=== PATIENT | male | born 1970 | race Caucasian/White ===

== ENCOUNTER 2019-07-20 09:33 | Day surgery (SDC) | payer OTHER, SELFPAY ==
--- NOTE | 2019-07-20 | PATH_ITS ---
[facility] Accession Number: [id number] . 01 Material submitted: . PART A: ileo-cecal valve - ILEOCECAL VALVE POLYP BIOPSY PART B: hepatic flexure - HEPATIC FLEXURE POLYP BIOPSY . 02 Diagnosis: A. Ileocecal Valve Polyp, Biopsy: Ileocolonic mucosa with prominent benign lymphoid aggregate. Negative for serrated lesion, dysplasia or malignancy. . B. Hepatic Flexure Polyp, Biopsy: Tubulovillous adenoma, fragmented. Negative for high-grade dysplasia or malignancy. [facility] 07/21/2019 0952 Local . 02 Electronically signed: . Ed Hoang MD, PhD, Pathologist NPI- [id number] . 01 Gross description: . Part A: ILEOCECAL VALVE POLYP BIOPSY: Received in formalin are 2 fragment(s) of gutierrez, soft tissue measuring 0.1 x 0.1 x 0.1 cm to 0.2 x 0.2 x 0.2 cm submitted entirely in 1 cassette(s) Part B: HEPATIC FLEXURE POLYP BIOPSY: Received in formalin are multiple fragment(s) of gutierrez, soft tissue measuring 0.1 x 0.1 x 0.1 cm to 0.5 x 0.5 x 0.4 cm submitted entirely in 1 cassette(s) /[facility] 07/20/2019 2224 Local . 02 Pathologist provided ICD-10: D12.3, K63.5 . 02 CPT . 229097, 584508 Performed at: 01 [facility] [address] [id number] MD Fritz Pink MD Phone: [phone] Performed at: 02 [facility] [address] [place], [place] [id number] MD Pinky Mcmahan MD Phone: [phone]
[2019-07-20 09:58] VITALS: BP 132/89; PULSE 89; RESP 20; TEMP 36.4; O2SAT 95
[2019-07-20 10:05] VITALS: BMI 31.8
--- NOTE | 2019-07-20 10:48 | P.HP_ITS ---
History of Present Illness History of Present Illness Date Patient Seen: 07/20/19 Time Patient Seen: 10:49 Chief complaint: [id number] Narrative: The patient is a gentleman here for screening colonoscopy. He turned 49. He has no symptoms. He has no family history colon cancer. Patient History Family & Social History Social History: household members spouse Meds Home Medications and Allergies Home Medications Medication Instructions Recorded Confirmed Type trazodone 50 - 100 mg PO HS PRN PRN #45 tab 01/10/17 Rx hydrocodone-acetaminophen 1 tab PO Q4H PRN 07/20/19 07/20/19 History losartan 50 mg PO QDAY 07/20/19 History metformin 1,000 mg PO BID 07/20/19 07/20/19 History simvastatin [Zocor] 40 mg PO HS 07/20/19 History Allergies Allergy/AdvReac Type Severity Reaction Status Date / Time aspirin Allergy Severe SEVERE Verified 07/20/19 09:43 BRONCHOSPASM ibuprofen Allergy Severe NASAL Verified 07/20/19 09:43 SWELLING NSAIDS (Non-Steroidal Allergy Severe SEVERE Verified 07/20/19 09:43 Anti-Inflamma BRONCHOSPASM Review of Systems Review of Systems ROS Unobtainable: All systems reviewed & are unremarkable except as noted in HPI and below Exam Vital Signs (past 8 hours): - 07/20/19 09:58 Temperature 97.5 F L Pulse Rate 89 Respiratory Rate 20 Blood Pressure 132/89 Pulse Oximetry 95 Oxygen Delivery Method Room Air Narrative Exam Narrative: Pleasant cooperative patient no apparent distress. Lungs are clear to auscultation. No rales or rhonchi. Heart regular rate and rhythm no murmur gallop. Abdomen is soft nontender without mass. No obvious hernias. Patient is alert and oriented x3. Assessment & Plan Assessment & Plan narrative: The patient for a screening colonoscopy. I have discussed the procedure with them. Risks of bleeding, perforation which would necessitate major operation, failure to find remove all lesions, the potential t attoo were all discussed. All questions were answered. They wished to proceed.
--- NOTE | 2019-07-20 10:50 | PM.PREOP ---
Pre-operative Note Interval Note History & Physical reviewed/Exam performed by Physician: Yes Changes to H&P: No ASA Class (for procedural sedation): I
[2019-07-20] MEDS: MIDAZOLAM 5 MG/5 ML VIAL IV (11:01)
[2019-07-20] MEDS: fentaNYL 250 MCG/5 ML INJ IV (11:02)
--- NOTE | 2019-07-20 11:34 | PM.OP.ENDO ---
Operative Date/Time/Diagnoses Date of procedure: 07/20/19 Time of procedure: 11:34 Pre-op diagnosis: Screening examination Post-op diagnosis: same (Polyp at at hepatic flexure. Irregularity of the ileocecal valve that could be an adenomatous change. Biopsy taken.) Procedure & Clinicians Study performed: Colonoscopy with cold biopsy and hot snare polypectomy Same procedure as scheduled: Yes Indications: Screening due to age of 49. This is his 1st colonoscopy. Surgeon: Indra Heredia Procedure Notes SCOAP/Timeout: Performed Procedure in detail: The patient was placed in the left lateral decubitus position and underwent IV sedation directed by the surgeon consisting of fentanyl and Versed. Digital exam was unremarkable. Prostate is smooth. May be slightly enlarged. No masses felt.. The scope was inserted and advanced through the rectum into the sigmoid, descending, transverse, and ascending colon. Sigmoid diverticulosis was noted. At the hepatic flexure there was a polyp noted which I decided to remove on the way out.. The cecum was reached identified by the ileocecal valve and the appendiceal opening. The ileocecal valve looked slightly unusual on about a 5th of its surface. I took some biopsies just to make sure this was not an adenoma. The abnormal looking area was not completely removed. If the biopsy is positive he will require repeat colonoscopy and treatment of this lesion. However I suspected it was just a normal variant which is why I did not pursue it further.. The scope was gradually brought out. The Polyp at the hepatic flexure found an using a hot snare was completely removed.. The scope ultimately was retroflexed in the rectum. The appearance was normal. The scope was removed and the patient tolerated the procedure well. The prep was good. Scope withdrawal time: 8 minutes(13 total) Sedation minutes: 31 Findings: diverticulosis and polyp Specimen(s): other (Polyp and biopsy of ileocecal valve) Complications: none Post-procedure Recommendations: Colonscopy in 5 years Follow up: as needed Disposition: PACU
[2019-07-20 11:40] VITALS: BP 128/79; PULSE 87; RESP 12; TEMP 36.4; O2SAT 93
[2019-07-20 11:45] VITALS: BP 119/82; PULSE 82; RESP 10; O2SAT 94
[2019-07-20 11:50] VITALS: BP 117/73; PULSE 85; RESP 12; TEMP 36.4; O2SAT 94
[2019-07-20 12:15] VITALS: BP 104/78; PULSE 75; RESP 15; TEMP 36; O2SAT 95
== END 2019-07-20 12:20 | disposition home or self-care (01) ==
PROVIDERS: PCP Physician Assistant; Visit Provider Specialist
PROC: 0DJD8ZZ Inspection of Lower Intestinal Tract, Via Natural or Artificial Opening Endoscopic (ICD-10-PCS; CPT 45378; principal; 2019-07-20 10:45)
DX: Z12.11 Encounter for screening for malignant neoplasm of colon (principal); K57.30 Diverticulosis of large intestine without perforation or abscess without bleeding; D12.3 Benign neoplasm of transverse colon; K63.5 Polyp of colon
CPT/HCPCS: 45385; 45380; 99152; 99153; J2250; J3010

== ENCOUNTER → 2021-08-16 13:39 | Outpatient (CLI) | payer OTHER, SELFPAY ==
[2021-08-16 14:36] LABS: Add Manual Diff / Slide Review NO; Basophils Absolute Auto 100 /uL (0-100); Basophils Percent Auto 0.7 % (0-2); Eosinophils Absolute Auto 400 /uL (0-450); Eosinophils Percent Auto 5.1 % (2-4); Hematocrit 45.4 % (41-53); Hemoglobin 15.7 g/dL (13.5-17.5); Lymphocytes Absolute Auto 1700 /uL (1100-4500); Lymphocytes Percent Auto 21.3 % (25-40); Mean Corpuscular HGB Conc 34.7 % (30-36); Mean Corpuscular Hemoglobin 32.3 PG (26-34); Mean Corpuscular Volume 93.1 fL (80-100); Monocytes Absolute Auto 800 /uL (0-900); Neutrophils Absolute Auto 5100 /uL (1500-7000); Neutrophils Percent Auto 62.9 % (50-75); Platelet Count 284 X10^3/uL (150-400); Red Blood Cell Count 4.87 X10^6/uL (4.5-5.9); Red Cell Distribution Width 13.3 % (11.6-14.8); White Blood Cell Count 8.1 X10^3/uL (4.5-11.0)
[2021-08-16 14:47] LABS: Hemoglobin A1C% w Est Avg Glu 6.6 % (4.0-6.0)
[2021-08-16 15:15] LABS: Alanine Aminotransferase 65 IU/L (<50); Albumin 4.6 g/dL (3.5-5.0); Albumin Globulin Ratio 1.9 (1.0-2.8); Alkaline Phosphatase 76 U/L (38-126); Aspartate Aminotransferase 42 IU/L (17-59); BUN Creatinine Ratio 17.9 (6-22); Blood Urea Nitrogen 15 mg/dL (9-20); Calcium 9.7 mg/dL (8.4-10.2); Carbon Dioxide 27 mmol/L (22-32); Chloride 104 mmol/L (98-107); Cholesterol 142 mg/dL (140-199); Estimated Glomerular Filt Rate > 60.0 mL/min (>60); Globulin 2.4 g/dL (1.7-4.1); Glucose 151 mg/dL (70-100); HDL Cholesterol 54 mg/dL (40-60); HEMOLYSIS < 15 (0-50); LDL Cholesterol Calculated 58 mg/dL (<100); Potassium 4.3 mmol/L (3.4-5.1); Sodium 140 mmol/L (137-145); Triglycerides 148 mg/dL (35-150)
[2021-08-16 15:44] LABS: Prostate Specific Antigen Scrn 0.781 ng/mL (0.1-4.0)
== END ==
PROVIDERS: PCP Family Medicine; Referring Provider Family Medicine; Visit Provider Family Medicine
DX: E78.2 Mixed hyperlipidemia (principal); E11.9 Type 2 diabetes mellitus without complications; Z12.5 Encounter for screening for malignant neoplasm of prostate
CPT/HCPCS: 36415; 80053; 80061; 83036; 85025; G0103

== ENCOUNTER → 2022-09-17 10:14 | Outpatient (CLI) | payer OTHER, SELFPAY ==
[2022-09-17 10:34] LABS: Add Manual Diff / Slide Review NO; Basophils Absolute Auto 100 /uL (0-100); Basophils Percent Auto 0.8 % (0-2); Eosinophils Absolute Auto 300 /uL (0-450); Eosinophils Percent Auto 4.4 % (2-4); Hematocrit 46.1 % (41-53); Hemoglobin 15.8 g/dL (13.5-17.5); Lymphocytes Absolute Auto 1800 /uL (1100-4500); Lymphocytes Percent Auto 24.3 % (25-40); Mean Corpuscular HGB Conc 34.2 % (30-36); Mean Corpuscular Hemoglobin 32.7 PG (26-34); Mean Corpuscular Volume 95.6 fL (80-100); Monocytes Absolute Auto 700 /uL (0-900); Monocytes Percent Auto 9.6 % (3-14); Neutrophils Absolute Auto 4400 /uL (1500-7000); Neutrophils Percent Auto 60.9 % (50-75); Platelet Count 322 X10^3/uL (150-400); Red Blood Cell Count 4.82 X10^6/uL (4.5-5.9); Red Cell Distribution Width 13.3 % (11.6-14.8); White Blood Cell Count 7.3 X10^3/uL (4.5-11.0)
[2022-09-17 10:53] LABS: Hemoglobin A1C% w Est Avg Glu 7.1 % (4.0-6.0)
[2022-09-17 11:09] LABS: Alanine Aminotransferase 37 IU/L (<50); Alkaline Phosphatase 73 U/L (38-126); Aspartate Aminotransferase 30 IU/L (17-59); BUN Creatinine Ratio 19.1 (6-22); Bilirubin Total 1.1 mg/dL (0.2-1.3); Blood Urea Nitrogen 13 mg/dL (9-20); Carbon Dioxide 25 mmol/L (22-32); Chloride 101 mmol/L (98-107); Cholesterol 237 mg/dL (140-199); Estimated Glomerular Filt Rate > 60 mL/min (>60); Glucose 134 mg/dL (70-100); HDL Cholesterol 56 mg/dL (40-60); HEMOLYSIS < 15 (0-50); LDL Cholesterol Calculated 133 mg/dL (<100); Potassium 4.3 mmol/L (3.4-5.1); Sodium 138 mmol/L (137-145); Total Protein 6.9 g/dL (6.3-8.2); Triglycerides 241 mg/dL (35-150)
[2022-09-17 11:25] LABS: Vitamin D 25 Hydroxy (D3) 18.4 ng/mL (30.0-100.0)
[2022-09-17 11:39] LABS: TSH w/ Reflex to FT4 1.71 uIU/mL (0.47-4.68)
[2022-09-17 11:57] LABS: Vitamin B12 331 pg/mL (239-931)
[2022-09-20 16:21] LABS: Albumin 4.4 g/dL (3.5-5.0); Albumin Globulin Ratio 1.8 (1.0-2.8); Globulin 2.5 g/dL (1.7-4.1)
[2022-09-23 12:36] LABS: Percent Free Testosterone 1.41 % (1.50-4.20); Testosterone Free 6.07 ng/dL (5.00-21.00); Testosterone Total 430.8 ng/dL (264.0-916.0)
== END ==
PROVIDERS: PCP Family Medicine; Referring Provider Family Medicine; Visit Provider Family Medicine
DX: E78.2 Mixed hyperlipidemia (principal); F32.A Depression, unspecified; I10 Essential (primary) hypertension; R53.83 Other fatigue; R73.03 Prediabetes
CPT/HCPCS: 36415; 80053; 80061; 82306; 82607; 83036; 84402; 84403; 84443; 85025

== ENCOUNTER → 2023-01-08 13:55 | Outpatient (CLI) | payer OTHER, SELFPAY ==
[2023-01-08 15:24] LABS: Cholesterol 152 mg/dL (140-199); HDL Cholesterol 52 mg/dL (40-60); LDL Cholesterol Calculated 49 mg/dL (<100); Triglycerides 255 mg/dL (35-150)
[2023-01-09 05:32] LABS: x Labcorp Estim. Avg Glu (eAG) 157 mg/dL (.); x Labcorp Hemoglobin A1c 7.1 % (4.8-5.6)
== END ==
PROVIDERS: PCP Family Medicine; Referring Provider Family Medicine; Visit Provider Family Medicine
DX: E11.9 Type 2 diabetes mellitus without complications (principal); E78.2 Mixed hyperlipidemia; I10 Essential (primary) hypertension
CPT/HCPCS: 36415; 80061; 83036

== ENCOUNTER → 2023-01-22 08:46 | Outpatient (CLI) | payer OTHER, SELFPAY ==
[2023-01-22 10:29] LABS: Ferritin 113 ng/mL (18-464)
== END ==
PROVIDERS: PCP Family Medicine; Referring Provider Family Medicine; Visit Provider Family Medicine
DX: G25.81 Restless legs syndrome (principal); M25.561 Pain in right knee
CPT/HCPCS: 36415; 82728

== ENCOUNTER → 2023-09-12 08:23 | Outpatient (CLI) | payer OTHER, SELFPAY ==
[2023-09-12 08:57] LABS: Hemoglobin A1C% w Est Avg Glu 7.4 % (4.0-6.0)
[2023-09-12 10:34] LABS: Creatinine Urine Random 214.5 mg/dL
[2023-09-12 10:39] LABS: Microalbumi Creatinin Ratio Ur 43.3 ug/mg CR (<30); Microalbumin Urine Random 9.3 mg/dL (0-1.6)
== END ==
LOC: LAB 08:24
PROVIDERS: PCP Family Medicine; Referring Provider Family Medicine; Visit Provider Family Medicine
DX: E11.9 Type 2 diabetes mellitus without complications (principal); I10 Essential (primary) hypertension
CPT/HCPCS: 36415; 82043; 82570; 83036

== ENCOUNTER → 2023-09-17 09:38 | Outpatient (CLI) | payer OTHER, SELFPAY ==
[2023-09-17 10:39] LABS: Alanine Aminotransferase 54 IU/L (<50); Albumin 4.7 g/dL (3.5-5.0); Albumin Globulin Ratio 1.6 (1.0-2.8); Alkaline Phosphatase 84 U/L (38-126); Aspartate Aminotransferase 52 IU/L (17-59); BUN Creatinine Ratio 15.9 (6-22); Bilirubin Total 1.4 mg/dL (0.2-1.3); Blood Urea Nitrogen 13 mg/dL (9-20); Calcium 9.8 mg/dL (8.4-10.2); Carbon Dioxide 22 mmol/L (22-32); Chloride 101 mmol/L (98-107); Cholesterol 186 mg/dL (140-199); Estimated Glomerular Filt Rate > 60 mL/min (>60); Glucose 146 mg/dL (70-100); HDL Cholesterol 51 mg/dL (40-60); LDL Cholesterol Calculated 64 mg/dL (<100); Potassium 4.4 mmol/L (3.4-5.1); Sodium 138 mmol/L (137-145); Total Protein 7.7 g/dL (6.3-8.2); Triglycerides 353 mg/dL (35-150)
[2023-09-17 13:49] LABS: HEMOLYSIS < 15 (0-50)
== END ==
PROVIDERS: PCP Family Medicine; Referring Provider Family Medicine; Visit Provider Family Medicine
DX: E11.9 Type 2 diabetes mellitus without complications (principal); E78.2 Mixed hyperlipidemia; R80.9 Proteinuria, unspecified
CPT/HCPCS: 36415; 80053; 80061

== ENCOUNTER → 2024-04-19 14:42 | Outpatient (CLI) | payer OTHER, SELFPAY ==
[2024-04-19 15:49] LABS: Hemoglobin A1C% w Est Avg Glu 6.4 % (4.0-6.0)
[2024-04-19 16:04] LABS: Alanine Aminotransferase 34 IU/L (<50); Albumin 4.5 g/dL (3.5-5.0); Alkaline Phosphatase 67 U/L (38-126); Aspartate Aminotransferase 24 IU/L (17-59); BUN Creatinine Ratio 17.9 (6-22); Blood Urea Nitrogen 15 mg/dL (9-20); Calcium 9.6 mg/dL (8.4-10.2); Carbon Dioxide 24 mmol/L (22-32); Chloride 105 mmol/L (98-107); Cholesterol 154 mg/dL (140-199); Estimated Glomerular Filt Rate > 60 mL/min (>60); Globulin 2.3 g/dL (1.7-4.1); Glucose 83 mg/dL (70-100); HDL Cholesterol 30 mg/dL (40-60); HEMOLYSIS < 15 (0-50); LDL Cholesterol Calculated 92 mg/dL (<100); Potassium 4.4 mmol/L (3.4-5.1); Sodium 140 mmol/L (137-145); Total Protein 6.8 g/dL (6.3-8.2); Triglycerides 162 mg/dL (35-150)
== END ==
LOC: LAB 14:43
PROVIDERS: PCP Family Medicine; Referring Provider Family Medicine; Visit Provider Family Medicine
DX: E11.9 Type 2 diabetes mellitus without complications (principal); R80.9 Proteinuria, unspecified; I10 Essential (primary) hypertension; E78.2 Mixed hyperlipidemia
CPT/HCPCS: 36415; 80053; 80061; 83036

== ENCOUNTER → 2024-04-20 08:27 | Outpatient (CLI) | payer OTHER, SELFPAY ==
[2024-04-20 09:16] LABS: Microalbumin Urine Random < 0.6 mg/dL (0-1.6)
[2024-04-20 09:23] LABS: Creatinine Urine Random 17.52 mg/dL
== END ==
LOC: LAB 08:28
PROVIDERS: PCP Family Medicine; Referring Provider Family Medicine; Visit Provider Family Medicine
DX: E11.9 Type 2 diabetes mellitus without complications (principal); R80.9 Proteinuria, unspecified; I10 Essential (primary) hypertension; E78.2 Mixed hyperlipidemia
CPT/HCPCS: 82043; 82570

== ENCOUNTER 2024-08-03 13:41 | Emergency (ER) | payer OTHER, SELFPAY ==
[2024-08-03] VITALS (11 sets, daily range): BP systolic 129–186; BP diastolic 86–103; PULSE 78–102; RESP 12–25; TEMP 36.7; O2SAT 94–99; BMI 32.1
--- NOTE | 2024-08-03 14:28 | ED.DIZZY ---
HPI - Dizziness General Chief Complaint: Dizziness Stated Complaint: Right ear pain, Vertigo Time Seen by Provider: 08/03/24 14:28 Source: patient, RN notes reviewed and old records reviewed Mode of arrival: Ambulatory Limitations: no limitations History of Present Illness HPI Narrative: 54-year-old male history of chronic arthritis, hypertension, dyslipidemia who presents with complaint of vertigo like symptoms that started about a week ago. Patient states it started about a week ago he rolled over in bed in the morning got up and felt like the room is spinning. He states it has been persistent although less intense as the week has gone by. He states movements particularly looking over his shoulder worse in his symptoms. States no fevers or chills, denies any vision changes. He has had no ear pain but a little bit of like a whooshing sound at nighttime while he was sleeping. He denies any numbness tingling or weakness of his extremities no difficulty with movement, no facial droop or speech changes. Denies any chest pain or shortness of breath. Had some mild nausea when it was quite intense but that is resolved. No GI or urinary symptoms. Patient states he called his physician today because his blood pressure was 180 systolic they told to come be evaluated. Patient has not had similar symptoms he states he is on medication for hypertension dyslipidemia and takes [place] daily for joint pain. History of appendectomy. Has sounds like anaphylactic reactions to aspirin and NSAIDs. Chews tobacco, quit alcohol 7 months ago. No recreational drugs or marijuana. Dr. Boyle is his primary care physician Related Data Previous Rx's Medication Instructions Recorded cholecalciferol (vitamin D3) 1,250 1,250 mcg PO QWEEK #8 caps 10/10/22 mcg (50,000 unit) capsule glimepiride 2 mg tablet 2 mg PO DAILY #90 tabs 10/10/23 naloxone 4 mg/actuation nasal 4 mg intranasal Q2M PRN opioid 10/10/23 spray (Narcan) overdose #2 ea paroxetine HCl 20 mg tablet 20 mg PO DAILY #90 tabs 11/04/23 paroxetine HCl 40 mg tablet 40 mg PO DAILY #90 tabs 11/04/23 metformin 1,000 mg tablet 1,000 mg PO BID #180 tabs 03/24/24 atorvastatin 20 mg tablet 20 mg PO BEDTIME #90 tabs 03/30/24 losartan 50 mg tablet 50 mg PO BID HYPERTENSION #180 tabs 03/30/24 hydrocodone 7.5 mg-acetaminophen See Rx Instructions .Route 07/15/24 325 mg tablet .COMPLEX #120 tabs clonazepam 0.5 mg tablet 0.5 mg PO BID PRN anxiety #30 tabs 07/20/24 meclizine 25 mg chewable tablet 25 mg PO QID PRN vertigo #14 tabs 08/03/24 (Motion Sickness Relief (meclizine)) Allergies Allergy/AdvReac Type Severity Reaction Status Date / Time aspirin Allergy Severe SEVERE Verified 04/21/24 12:03 BRONCHOSPASM ibuprofen Allergy Severe NASAL Verified 04/21/24 12:03 SWELLING NSAIDS (Non-Steroidal Allergy Severe SEVERE Verified 04/21/24 12:03 Anti-Inflamma BRONCHOSPASM Review of Systems Review of Systems ROS Unobtainable: All systems reviewed & are unremarkable except as noted in HPI and below Patient History Medical History Right wrist pain Anxiety Microalbuminuria Pain of right great toe Restless leg Diabetes Alcohol abuse Depression Fatigue Suspicious nevus HTN (hypertension) Screening for prostate cancer Left knee pain (04/29/13) Right knee pain (04/29/13) Mixed hyperlipidemia (01/16/11) Obstructive sleep apnea syndrome (01/16/11) Social History household members: spouse Smoking Status: Former smoker Smokeless tobacco user: chewing tobacco alcohol intake: current substance use type: does not use Smoking Status: Former smoker tobacco type: smokeless tobacco Substance Use Type: does not use Exam Narrative Exam Narrative: GEN: well nourished, well appearing male, alert and oriented x 3, patient appears to be in mild distress. HEENT: Atraumatic, pupils are equal round reactive to light, extraocular movements are intact, no nystagmus, negative [place]. Nares are clear, TMs are retracted bilaterally, scant amount of fluid, no erythema, there is no conjunctival pallor. Throat is clear without any exudates, erythema, tonsillar enlargement or uvular deviation, no facial droop HEART: Regular rate and rhythm without murmur, clicks, rubs. No edema bilateral lower extremities LUNGS:Lungs clear to auscultation, no wheezes, rales, crackles, chest moves symmetrically ABD:bowel sounds normal, soft, non-tender, no guarding, rebound, rigidity, no masses noted, no hepatosplenomegaly :No CVA tenderness MSCL: Non-tender, no muscle atrophy, muscles strength 5/5 upper and lower extremities, full range of motion, normal gait NEURO:CN 2-12 intact, sensation normal, finger nose finger test normal, heel portillo test normal. Initial Vital Signs Initial Vital Signs: Vital Signs Temperature 98.0 F 08/03/24 14:00 Pulse Rate 102 H 08/03/24 14:00 Respiratory Rate 16 08/03/24 14:00 Blood Pressure 186/103 H 08/03/24 14:00 Pulse Oximetry 97 08/03/24 14:00 Oxygen Delivery Method Room Air 08/03/24 14:00 Course Orders Ordered: ED Orders 08/03/24 14:27 CBC Auto Diff [Complete Blood Count AUTO DIFF] Stat CMP [Comprehensive Metabolic Panel] Stat 08/03/24 15:04 CT angio head and neck Stat CT head/brain wo con Stat 08/03/24 15:10 EKG-12 Lead Stat Discontinued Medications Meclizine HCl (Meclizine Hcl 12.5 Mg Tablet) 25 mg PO NOW ONE Stop: 08/03/24 15:05 Last Admin: 08/03/24 15:43 Dose: 25 mg Documented By: CHEYANNE Vital Signs Vital signs: Vital Signs - 8 hr 08/03/24 14:00 08/03/24 14:25 08/03/24 14:26 Temperature 98.0 F Pulse Rate 102 H 90 88 Respiratory Rate 16 25 H 12 Blood Pressure 186/103 H Pulse Oximetry 97 96 96 Oxygen Delivery Method Room Air 08/03/24 14:26 08/03/24 14:30 08/03/24 14:30 Temperature Pulse Rate 90 Respiratory Rate 18 Blood Pressure 141/90 H 143/90 H Pulse Oximetry 94 Oxygen Delivery Method 08/03/24 15:00 08/03/24 15:00 08/03/24 15:22 Temperature Pulse Rate 81 88 Respiratory Rate 19 Blood Pressure 139/92 H Pulse Oximetry 95 99 Oxygen Delivery Method 08/03/24 15:22 08/03/24 15:30 08/03/24 15:31 Temperature Pulse Rate 83 82 Respiratory Rate 12 Blood Pressure 172/100 H Pulse Oximetry 95 95 Oxygen Delivery Method 08/03/24 15:31 08/03/24 16:00 08/03/24 16:00 Temperature Pulse Rate 84 Respiratory Rate 19 Blood Pressure 154/88 H 134/86 Pulse Oximetry 95 Oxygen Delivery Method 08/03/24 16:30 08/03/24 16:30 08/03/24 17:00 Temperature Pulse Rate 78 Respiratory Rate 16 Blood Pressure 129/88 137/89 Pulse Oximetry 97 Oxygen Delivery Method 08/03/24 17:00 Temperature Pulse Rate 85 Respiratory Rate 16 Blood Pressure Pulse Oximetry 95 Oxygen Delivery Method MDM - Dizziness Lab Data 08/03/24 14:27 08/03/24 14:27 Labs: Lab Results 08/03/24 Range/Units 14:27 WBC 7.6 (4.5-11.0) X10^3/uL RBC 5.39 (4.5-5.9) X10^6/uL Hgb 16.2 (13.5-17.5) g/dL Hct 48.3 (41-53) % MCV 89.6 (80-100) fL MCH 30.1 (26-34) PG MCHC 33.6 (30-36) % RDW 14.7 (11.6-14.8) % Plt Count 260 (150-400) X10^3/uL Neut % (Auto) 59.6 (50-75) % Lymph % (Auto) 25.9 (25-40) % [place] % (Auto) 9.7 (3-14) % Eos % (Auto) 4.2 H (2-4) % Baso % (Auto) 0.6 (0-2) % Neut # (Auto) 4500 (1724-6530) /uL Lymph # (Auto) 2000 (7382-0795) /uL [place] # (Auto) 700 (0-900) /uL Eos # (Auto) 300 (0-450) /uL Baso # (Auto) 0 (0-100) /uL Sodium 138 (137-145) mmol/L Potassium 4.1 (3.4-5.1) mmol/L Chloride 103 (98-107) mmol/L Carbon Dioxide 26 (22-32) mmol/L BUN 19 (9-20) mg/dL Creatinine 0.93 (0.66-1.25) mg/dL Estimated GFR > 60 (>60) mL/min BUN/Creatinine Ratio 20.4 (6-22) Glucose 130 H (70-100) mg/dL Calcium 9.6 (8.4-10.2) mg/dL Total Bilirubin 1.1 (0.2-1.3) mg/dL AST 39 (17-59) IU/L ALT 40 (<50) IU/L Alkaline Phosphatase 59 (38-126) U/L Total Protein 7.0 (6.3-8.2) g/dL Albumin 4.5 (3.5-5.0) g/dL Globulin 2.5 (1.7-4.1) g/dL Albumin/Globulin Ratio 1.8 (1.0-2.8) ECG Data Attestation: I personally reviewed and interpreted this ECG as follows: Interpretation: Sinus rhythm rate 84 CT 182 QRS of 98 QTC of 437, no acute ST elevation depression noted. MDM Narrative Medical decision making narrative: 54-year-old male with a week of vertigo like symptoms, patient's exam does not show any other acute neurologic changes no nystagmus on exam negative [place]. Patient was hypertensive although on recheck is 136 systolic while I am in the room. Patient has had some improvement in the intensity but not resolution. Head CT no acute intracranial pathology mild chronic microvascular ischemic changes. CTA head and neck no significant acute intracranial or changes to the arteries of the neck. Labs normal CBC, normal electrolytes, BUN creatinine 0.93 glucose of 130 LFTs are negative. EKG shows normal sinus rhythm. Patient was given a dose of oral meclizine. On recheck patient is feeling much improved. Pressures improved as well. Discussed return precautions all questions answered. Discussed follow up with ENT persistent symptoms. My suspicion for stroke significant lower no other acute neurologic changes had a week of symptoms without any changes consistent with stroke on CT, CT angio is negative. Discussed with patient he feels comfortable this plan. Discharge Plan Departure Patient Disposition: Home Clinical Impression: Vertigo Instructions: DI for Vertigo Activity Restrictions/Additional Instructions: Please follow up for recheck, your blood pressure was initially elevated but has improved during your stay. If you are continuing to have symptoms I would recommend follow up with ENT for further evaluation of your vertigo. Contacts included below. Please call to set up appointment. You can take meclizine 1-2 tablets every 6 hours as needed for symptoms. Prescription sent to [facility] in [place]. This medication is also available [id number]-cei-xddhddm. Please return for fevers, new numbness, tingling or weakness, facial droop difficulty with speech, rapidly worsening symptoms, inability to walk or ambulate safely or other new or concerning changes. Prescriptions: New meclizine [Motion Sickness Relief(mecliz)] 25 mg tablet,chewable 25 mg PO QID PRN (Reason: vertigo ) Qty: 14 0RF No Action paroxetine HCl 20 mg tablet 20 mg PO DAILY Qty: 90 1RF Rx Instructions: TAKE WITH 1 TAB OF 40MG PAROXETINE TAB FOR TOTAL DAILY DOSE 60MG paroxetine HCl 40 mg tablet 40 mg PO DAILY Qty: 90 1RF Rx Instructions: TAKE WITH 1 TAB 20MG PAROXETINE FOR TOTAL 60MG DAILY DOSE metformin 1,000 mg tablet 1,000 mg PO BID Qty: 180 1RF atorvastatin 20 mg tablet 20 mg PO BEDTIME Qty: 90 3RF losartan 50 mg tablet 50 mg PO BID Qty: 180 1RF hydrocodone-acetaminophen 7.5-325 mg tablet See Rx Instructions .ROUTE .COMPLEX Qty: 120 0RF Rx Instructions: Take 1 tablet by mouth every 4 hours as needed for pain EXEMPT clonazepam 0.5 mg tablet 0.5 mg PO BID PRN (Reason: anxiety) Qty: 30 5RF cholecalciferol (vitamin D3) 1,250 mcg (50,000 unit) capsule 1,250 mcg PO QWEEK Qty: 8 0RF Narcan 4 mg/actuation spray,non-aerosol 4 mg intranasal Q2M PRN (Reason: opioid overdose) Qty: 2 3RF Rx Instructions: spray 1 dose into ONE nostril; alternate nostrils w each dose until help arrives glimepiride 2 mg tablet 2 mg PO DAILY Qty: 90 5RF Referrals: Chang Pearce MD [Physician] - Juni Boyle DO [Primary Care Provider] - Stand Alone Forms: Patient Portal/API/Survey, Work Release Note
--- NOTE | 2024-08-03 15:04 | DI.CT.S_ITS ---
PROCEDURE: CT HEAD/BRAIN WO CON INDICATIONS: vertigo x 1 week, no improving TECHNIQUE: Noncontrast 4.5 mm thick angled axial sections acquired from the foramen magnum to the vertex, with coronal and sagittal reformats. For radiation dose reduction, the following was used: automated exposure control, adjustment of mA and/or kV according to patient size. COMPARISON: None. FINDINGS: Image quality: Diagnostic. CSF spaces: Basal cisterns are patent. No extra-axial fluid collections. Ventricles are normal in size and shape. Brain: No midline shift. No intracranial masses or hemorrhage. A few scattered hypodensities in the subcortical and periventricular white matter are most likely related to chronic microvascular ischemic changes. Skull and face: Calvarium and visualized facial bones are intact, without suspicious lesions. Sinuses: Small mucous retention cysts in the maxillary sinuses. Mild mucosal thickening in the sphenoid sinuses and ethmoid air cells. Frontal sinuses and mastoid air cells are clear. Visualized sinuses and mastoids are clear. IMPRESSION: 1. No acute intracranial pathology. 2. Mild chronic microvascular ischemic changes. Approved by: Oswaldo Brown M.D. on 08/03/2024 at 15:31
--- NOTE | 2024-08-03 15:04 | DI.CT.S_ITS ---
PROCEDURE: CT ANGIO HEAD AND NECK INDICATIONS: vertigo x 1 week, no improving TECHNIQUE: After the administration of intravenous contrast, 1 mm thick sections acquired from the aortic arch through the [place] of [place]. 3-dimensional oxyoqcv-rubnhlzhl-iehljdttxe (MIP) and/or volume rendering reformats were acquired of the central intracranial vasculature and neck separately. For radiation dose reduction, the following was used: automated exposure control, adjustment of mA and/or kV according to patient size. COMPARISON: [facility], CT, CT HEAD/BRAIN WO CON, 08/03/2024, 15:21. FINDINGS: Image quality: Diagnostic. BRAIN: See CT head report of 08/03/2024 for further details. HEAD CT ANGIOGRAPHY: Anterior circulation: Intracranial internal carotid arteries are normal in size and flow. The flow within the paired anterior cerebral arteries is normal and symmetric. The flow within the middle cerebral arteries is normal and symmetric. The anterior communicating artery is seen. No aneurysms are seen. Posterior circulation: Slight left vertebral artery dominance. Visualized portions of the vertebral arteries demonstrate normal caliber, and join to form a normal appearing basilar artery. Flow within the posterior cerebral arteries is normal and symmetric. No aneurysms are seen. NECK CT ANGIOGRAPHY: Carotid system: The great vessels demonstrate a conventional anatomy as they arise from the aortic arch. The origins of the common carotid arteries appear patent. The common carotid arteries demonstrate normal caliber and courses. The bifurcation regions are both widely patent. The internal carotid arteries demonstrate normal calibers and courses. Posterior circulation: The origins of the vertebral arteries both appear widely patent. The more superior extracranial portions of both vertebral arteries also demonstrate normal courses and calibers. They join to form a normal appearing basilar artery. Soft tissues: Visualized neck soft tissues demonstrate no suspicious abnormalities. Bones: No suspicious bony lesions. Visualized cervical spine appears normally aligned. IMPRESSION: No significant intracranial arterial abnormality is seen. No significant abnormality is seen within the arteries of the neck. Any quantitative measurements of stenosis were performed using NASCET criteria. Dictated by: Jelly Tabor M.D. on 08/03/2024 at 15:37 Approved by: Jelly Tabor M.D. on 08/03/2024 at 15:41
[2024-08-03 15:35] LABS: Add Manual Diff / Slide Review NO; Basophils Absolute Auto 0 /uL (0-100); Basophils Percent Auto 0.6 % (0-2); Eosinophils Absolute Auto 300 /uL (0-450); Eosinophils Percent Auto 4.2 % (2-4); Hematocrit 48.3 % (41-53); Hemoglobin 16.2 g/dL (13.5-17.5); Lymphocytes Absolute Auto 2000 /uL (1100-4500); Lymphocytes Percent Auto 25.9 % (25-40); Mean Corpuscular HGB Conc 33.6 % (30-36); Mean Corpuscular Hemoglobin 30.1 PG (26-34); Mean Corpuscular Volume 89.6 fL (80-100); Monocytes Absolute Auto 700 /uL (0-900); Monocytes Percent Auto 9.7 % (3-14); Neutrophils Absolute Auto 4500 /uL (1500-7000); Neutrophils Percent Auto 59.6 % (50-75); Platelet Count 260 X10^3/uL (150-400); Red Blood Cell Count 5.39 X10^6/uL (4.5-5.9); Red Cell Distribution Width 14.7 % (11.6-14.8); White Blood Cell Count 7.6 X10^3/uL (4.5-11.0)
[2024-08-03 15:37] LABS: Alanine Aminotransferase 40 IU/L (<50); Albumin 4.5 g/dL (3.5-5.0); Albumin Globulin Ratio 1.8 (1.0-2.8); Alkaline Phosphatase 59 U/L (38-126); Aspartate Aminotransferase 39 IU/L (17-59); BUN Creatinine Ratio 20.4 (6-22); Bilirubin Total 1.1 mg/dL (0.2-1.3); Blood Urea Nitrogen 19 mg/dL (9-20); Calcium 9.6 mg/dL (8.4-10.2); Carbon Dioxide 26 mmol/L (22-32); Chloride 103 mmol/L (98-107); Estimated Glomerular Filt Rate > 60 mL/min (>60); Globulin 2.5 g/dL (1.7-4.1); Glucose 130 mg/dL (70-100); HEMOLYSIS 19 (0-50); Potassium 4.1 mmol/L (3.4-5.1); Sodium 138 mmol/L (137-145)
[2024-08-03] MEDS: MECLIZINE HCL 12.5 MG TABLET 25 MG PO (15:43)
--- NOTE | 2024-08-03 15:59 | EKG_ITS ---
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
== END 2024-08-03 17:25 | disposition home or self-care (01) ==
PROVIDERS: Emergency Provider Emergency Medicine; PCP Family Medicine
DX: R42 Dizziness and giddiness (principal); I10 Essential (primary) hypertension
CPT/HCPCS: 70450; 70496; 70498; 80053; 85025; 93005; 93010; 99283; 99284; Q9967

== ENCOUNTER → 2024-11-22 11:28 | Outpatient (CLI) | payer OTHER, SELFPAY ==
[2024-11-22 12:38] LABS: Hemoglobin A1C% w Est Avg Glu 6.6 % (4.0-6.0)
[2024-11-22 12:51] LABS: Cholesterol 210 mg/dL (140-199); HDL Cholesterol 35 mg/dL (40-60); LDL Cholesterol Calculated 137 mg/dL (<100); Triglycerides 190 mg/dL (35-150)
== END ==
PROVIDERS: PCP Family Medicine; Referring Provider Family Medicine; Visit Provider Family Medicine
DX: E11.9 Type 2 diabetes mellitus without complications (principal); I10 Essential (primary) hypertension; E78.2 Mixed hyperlipidemia
CPT/HCPCS: 36415; 80061; 83036

== ENCOUNTER → 2025-06-29 12:10 | Outpatient (CLI) | payer OTHER, SELFPAY ==
[2025-06-29 12:43] LABS: Add Manual Diff / Slide Review NO; Hematocrit 48.4 % (41-53); Hemoglobin 16.2 g/dL (13.5-17.5); Lymphocytes Absolute Auto 1700 /uL (1100-4500); Mean Corpuscular HGB Conc 33.5 % (30-36); Mean Corpuscular Hemoglobin 30.4 PG (26-34); Mean Corpuscular Volume 90.9 fL (80-100); Platelet Count 231 X10^3/uL (150-400)
[2025-06-29 12:50] LABS: Hemoglobin A1C% w Est Avg Glu 6.1 % (4.0-6.0)
[2025-06-29 13:16] LABS: Alanine Aminotransferase 25 IU/L (<50); Albumin 4.6 g/dL (3.5-5.0); Albumin Globulin Ratio 2.0 (1.0-2.8); Alkaline Phosphatase 58 U/L (38-126); Blood Urea Nitrogen 17 mg/dL (9-20); Calcium 9.4 mg/dL (8.4-10.2); Carbon Dioxide 24 mmol/L (22-32); Chloride 106 mmol/L (98-107); Cholesterol 178 mg/dL (140-199); Estimated Glomerular Filt Rate > 60 mL/min (>60); Globulin 2.3 g/dL (1.7-4.1); Glucose 119 mg/dL (70-99); HDL Cholesterol 45 mg/dL (40-60); HEMOLYSIS < 15 (0-50); Potassium 4.2 mmol/L (3.4-5.1); Sodium 139 mmol/L (137-145); Total Protein 6.9 g/dL (6.3-8.2); Triglycerides 173 mg/dL (35-150)
[2025-06-29 15:36] LABS: Microalbumi Creatinin Ratio Ur 37.0 ug/mg CR (<30)
== END ==
PROVIDERS: PCP Family Medicine; Referring Provider Family Medicine; Visit Provider Family Medicine
DX: E11.9 Type 2 diabetes mellitus without complications (principal); R80.9 Proteinuria, unspecified; E78.2 Mixed hyperlipidemia
CPT/HCPCS: 36415; 80053; 80061; 82043; 82570; 83036; 85025

== ENCOUNTER → 2025-08-16 13:22 | Outpatient (CLI) | payer OTHER, SELFPAY ==
--- NOTE | 2025-08-16 13:23 | DI.RAD.S_ITS ---
PROCEDURE: XR LUMBAR SPINE 2-3V INDICATIONS: sharp pain x 3 days w/ left side sciatica TECHNIQUE: 3 views of the lumbar spine were acquired. COMPARISON: None. FINDINGS: Bones: 5 [id number]-giuwnxa vertebrae are present. There is trace retrolisthesis of L1 on L2, L2 on L3, L3 on L4. No vertebral body compression fractures. No suspicious bony lesions. Multilevel degenerative disc and foraminal narrowing most severe at L5-S1. Soft tissues: Overlying bowel gas pattern is normal. No suspicious soft tissue calcifications. IMPRESSION: No acute bony abnormality. Degenerative changes most severe at L5-S1. Dictated by: Jelly Tabor M.D. on 08/16/2025 at 14:04 Approved by: Jelly Tabor M.D. on 08/16/2025 at 14:05
== END ==
PROVIDERS: PCP Family Medicine; Referring Provider Physician Assistant; Visit Provider Physician Assistant
DX: S39.012A Strain of muscle, fascia and tendon of lower back, initial encounter (principal); M47.817 Spondylosis without myelopathy or radiculopathy, lumbosacral region
CPT/HCPCS: 72100